=== PATIENT | female | born 1995 | race Caucasian/White ===

== ENCOUNTER → 2019-06-18 11:15 | Outpatient (CLI) | payer OTHER, SELFPAY ==
[2019-06-18 12:45] LABS: Hematocrit 40.7 % (37.0-47.0); Hemoglobin 13.8 g/dL (12.2-16.2); Mean Corpuscular HGB Conc 33.8 g/dL (31.8-35.4); Mean Corpuscular Hemoglobin 30.6 pg (27.0-31.2); Mean Corpuscular Volume 90.4 fl (81-99); Mean Platelet Volume 6.9 fl (7.4-10.4); Platelet Count 365 K/mm3 (142-424); Red Cell Distribution Width 12.9 % (11.5-17.5); White Blood Count 8.5 K/mm3 (4.8-10.8)
[2019-06-18 12:46] LABS: Basophils # 0.1 K/mm3 (0-0.2); Basophils % 0.6 % (0.1-2.0); Eosinophils % 0.5 % (0.1-12.0); Lymphocytes # 1.6 K/mm3 (0.7-4.5); Lymphocytes % 18.7 % (10-50); Monocytes # 0.3 K/mm3 (0.1-1.0); Monocytes % 3.8 % (1.7-9.3); Neutrophils # 6.5 K/mm3 (1.8-7.8); Neutrophils % 76.4 % (37.0-80.0)
[2019-06-19 05:10] LABS: HIV Screen 4th Generation wRfx Non Reactive (Non Reactive)
[2019-06-19 10:50] LABS: Hepatitis B Surface Antigen Negative (Negative); Hepatitis C Antibody <0.1 s/co ratio (0.0-0.9); Rubella Antibodies, IgG <0.90 index (Immune >0.99)
[2019-06-19 10:51] LABS: Rapid Plasma Reagin Ab Titer Non Reactive (NonRea<1:1)
== END ==
PROVIDERS: Visit Provider Nurse Practitioner Obstetrics & Gynecology
DX: Z34.90 Encounter for supervision of normal pregnancy, unspecified, unspecified trimester (principal)
CPT/HCPCS: 36415; 85025; 86592; 86703; 86762; 86850; 87340; 87380; G0432

== ENCOUNTER → 2019-06-24 12:50 | Outpatient (CLI) | payer OTHER, SELFPAY ==
--- NOTE | 2019-06-24 12:50 | US_ITS ---
PROCEDURE: US OB <= 14 WEEKS FETUS CLINICAL INDICATION: for dates Evaluate dates COMPARISON: No exams were available for comparison FINDINGS: An intrauterine gestational sac is present with a pole with a crown-rump length of 3.47cm correlating to gestational age of 10weeks 3days. heart tones are present with an FHR of 164bpm. Yolk sac is noted. Chorion and amnion have not yet fused.. There is a 1.3 cm left ovarian cyst and there is a 2.3 cm right ovarian cyst IMPRESSION: Live IUP at 10 weeks 3 days. Estimated due date by Ultrasound is 01/17/2020 Dictated by: Chi Mix MD 06/24/2019 15:10 Electronically signed by Chi Mix MD in [place] 06/24/2019 15:10
== END ==
PROVIDERS: PCP Family Medicine; Visit Provider Nurse Practitioner Obstetrics & Gynecology
DX: Z34.90 Encounter for supervision of normal pregnancy, unspecified, unspecified trimester (principal)
CPT/HCPCS: 76801

== ENCOUNTER 2020-09-28 09:35 | Emergency (ER) | payer OTHER, SELFPAY ==
[2020-09-28 09:35] VITALS: BP 119/69; PULSE 87; RESP 21; TEMP 36.9; O2SAT 97; BMI 39.4
--- NOTE | 2020-09-28 10:03 | HMH.EDUTC ---
[facility] [place] Clinical Impression: Viral upper respiratory illness Disposition: Home, Self-Care Condition on Discharge: Good Instructions: Common Cold, DI for Viral Upper Respiratory Infection -- Adult, DI for COVID-19 (Suspected or Confirmed ), Preventing the Spread of Coronavirus Discharge Instructions Additional Instructions: *Monitor Temp, Over the counter Motrin or Tylenol as directed/as needed Tylenol every 4 hours and Motrin every 6 hours (as long as your family doctor has told you that you can take it) for fever or pain. and straight to ER if unable to lower temp less than 101.0 after medication given *Warm salt water gargles may help to soothe the throat *Throat Lozenges *Warm fluids like tea with honey may help to soothe the throat *Sleep elevated *Humidifier/Vaporizer *Bromfed may cause drowsiness. Know how it effects you (your child) before driving, caring for small child, or sending your child to school. Not other antihistamines/allergy medications while taking bromfed Your throat swab was sent for culture. Those results are typically sent to your primary care. Be sure to follow up in 2-3 days with your family doctor/primary care physician if no improvement so they can review those result and treat if necessary. If you don?t have a primary care doctor, I recommend you get one but in the mean time, you will have to return to a walk in clinic Follow up IMMEDIATELY for new or worsening symptoms or no Noticeable improvement over the next 48-72 hours. 911 for difficulty breathing or swallowing You were tested for today for COVID19 your test result should be back in the next 24-48 hours, you may call to the [facility] to see if your test results are back in the next 48 hours [phone] [facility] hours are 9am-9pm You was given a handout with instructions for Self Quarantine and Self isolation for while you wait on test results and what to do if they are positive If you are positive the Health Dept will be contacting you also Prescriptions: Brompheniramine/Pseudoephed/Dm [Bromfed Dm Cough Syrup] 5 - 10 ml PO Q46H PRN #150 ml PRN Reason: Cough Transmission Status: Pending to [id number] Referrals: Jose Cruz Buckley MD [Primary Care Provider] - As needed Forms: Work/School Release Time of Disposition: 10:07 Medical Decision Making - Fish Inquiry Pt receiving controlled substance: No Fish was queried for this patient: No Vital Signs: 09/28/20 09:35 Temperature 98.4 F Temperature Source Oral Pulse Rate [Right Brachial] 87 Respiratory Rate 21 Blood Pressure [Right Arm] 119/69 Blood Pressure Mean [Right Arm] 85 Blood Pressure Source [Right Arm] Automatic Cuff Blood Pressure Position [Right Arm] Sitting 02 Sat by Pulse Oximetry 97 Oxygen Delivery Method Room Air - Lab Data Lab results reviewed: Yes: I reviewed the patient's lab results. [facility] [place] - General Stated complaint: Covid symptoms; test for work Time Seen by Provider: 09/28/20 10:03 Mode of Arrival: Ambulatory Source of Information: Patient Limitations: No Limitations Description of Symptoms (Recalled from Triage Doc. by RN): PATIENT C/O SORE THROAT, COUGH, RUNNY NOSE, AND HEADACHE. STATES SHE IS NEEDING A COVID TEST AND A WORK NOTE TO RETURN TO WORK HEENT Symptoms (Recalled from RN notes): Yes Resp Symptoms (Recalled from RN notes): Yes Skin Symptoms (Recalled from RN notes): No MS Symptoms (Recalled from RN notes): No Functional Status (Recalled from RN notes): WNL - History of Present Illness Provider Complaint: Patient states that she hasnt felt well for a couple of days States that she thinks it is allergies but due to her having runny nose, cough, sore throat and headache her work is wanting her to get tested for COVID before she can return to work Denies any known exposure - Related Data Previous Rx's Medication Instructions Recorded Brompheniramine/Pseudoephed/Dm 5 - 10 ml PO Q46H PRN #150 ml 09/28/20 [Bromfed Dm Cough Sy
[2020-09-28 10:05] LABS: UTC Strep Screen (Rapid) Negative (Negative)
[2020-09-28 10:08] VITALS: BP 119/69; PULSE 87; RESP 21; TEMP 36.9; O2SAT 97
== END 2020-09-28 10:14 | disposition home or self-care (01) ==
PROVIDERS: Emergency Provider Nurse Practitioner; PCP Family Medicine
DX: J06.9 Acute upper respiratory infection, unspecified (principal); Z20.822 Contact with and (suspected) exposure to COVID-19
CPT/HCPCS: 87880; 99203; G0463; U0003

== ENCOUNTER 2022-09-03 20:28 | Emergency (ER) | payer OTHER, SELFPAY ==
[2022-09-03 20:29] VITALS: BP 118/62; PULSE 87; RESP 19; TEMP 36.8; O2SAT 98; BMI 41.1
--- NOTE | 2022-09-03 21:15 | HMH.EDWNDL ---
Discharge Plan Disposition Patient Disposition: Home, Self-Care Prescriptions Prescriptions: No Action [id number]-xlmxtlora-CV 118 ML syrup 5 - 10 ml PO Q46H PRN (Reason: Cough) Qty: 150 0RF Referrals Follow up/Referrals: Provider,Referral, [Primary Care Provider] - See instructions Clinical Impressions Clinical Impression: Laceration of finger Instructions Patient Instructions: How to Change a Wet to Dry Wound Dressing Discharge ED Provider: Shaka (ED)Cam Wound/Laceration HPI General Chief Complaint: Wound/Laceration Stated Complaint: AO [id number] cut to right pinky Time Seen by Provider: 09/03/22 21:15 Mode of Arrival: Ambulatory Source of Information: Patient, Spouse and Medical Record Limitations: No Limitations Description of Symptoms (Recalled from ER Triage Doc. by RN): 27 F presents from home after sliving her right pinky finger with a vegetable sicer approximately 20 minutes ago. Patient has 1 inch laceration to her lateral aspect of pinky. Bleeding is still active, but patient has pressure dressing on that she placed at home. CMS intact, no ligament injury apparent. Unknown last tetanus. History of Present Illness HPI narrative: rt fifth finger lac sec to using madoline - Onset (ago): hour(s) Extremity Location: Right: hand Place: home Patient tetanus UTD: Yes Context: sharp object use Associated symptoms: none Related Data Previous Rx's Medication Instructions Recorded qhbttktxekfmasz-tlczmonagpuvvxr-PO 5 - 10 ml PO Q46H PRN Cough #150 mL 09/28/20 2 mg-30 mg-10 mg/5 mL oral syrup Allergies Allergy/AdvReac Type Severity Reaction Status Date / Time No Known Allergies Allergy Verified 06/18/19 10:04 [facility] Disclaimer: The information contained in this section may have been updated after the patient was seen, as this information can be updated by other users. Social History Smoking Status: Never smoker alcohol intake: never current occupational status: other Travel in the last 8 weeks: None ROS Obtained: Yes All systems reviewed & no additional complaints except as documented Physical Exam General General appearance: alert Head Head exam: normocephalic Eye Eye exam: Present PERRL and EOMI ENT ENT exam: Present mucous membranes moist Neck Neck exam: Present trachea midline Respiratory Respiratory exam: Present normal lung sounds bilaterally; Absent respiratory distress Cardiovascular Cardiovascular exam: Present regular rate Extremities Exam Extremities exam: Present full ROM Neurological Exam Neurological exam: Present alert, oriented X3 and CN II-XII intact Psychiatric Psychiatric exam: Present normal affect Skin Skin exam: Present other (1 cm avulsion lac rt fifth finger ); Absent rash Medical Decision Making Medical Records Medical records reviewed: Yes I reviewed the patient's medical records. Fish Inquiry Pt receiving controlled substance: No Vital Signs: 09/03/22 20:29 09/03/22 21:32 09/03/22 21:32 Temperature 98.3 F 98.2 F Temperature Source Oral Pulse Rate 84 Pulse Rate [Left] 87 Respiratory Rate 19 17 Blood Pressure 120/68 Blood Pressure [Right Arm] 118/62 Blood Pressure Mean [Right Arm] 80 Blood Pressure Source [Right Arm] Automatic Cuff Blood Pressure Position [Right Arm] Sitting 02 Sat by Pulse Oximetry 98 Oxygen Delivery Method Room Air Room Air Room Air Orders (Tests/Meds): ED MEDICATIONS Discontinued Medications Generic Name Dose Route Start Last Admin Trade Name Freq PRN Reason Stop Dose Admin Lidocaine HCl 10 ml 09/03/22 20:40 09/03/22 20:42 Lidocaine 1% 10ml Mdv IJ 09/03/22 20:41 10 ml ONCE ONE Administration Medical Decision Narrative: rt fifth finger avulsion lac - no sutures required Critical Care Time Critical Care Time Critical Care Time: No Attestation: On 09/03/22, the high probability of a clinically significant, sudden or l
[2022-09-03 21:32] VITALS: BP 120/68; PULSE 84; RESP 17; TEMP 36.8; O2SAT 98
== END 2022-09-03 21:40 | disposition home or self-care (01) ==
PROVIDERS: Emergency Provider Emergency Medicine
DX: S61.216A Laceration without foreign body of right little finger without damage to nail, initial encounter (principal); W26.8XXA Contact with other sharp object(s), not elsewhere classified, initial encounter; Y93.G1 Activity, food preparation and clean up
CPT/HCPCS: 99282; 99283